=== PATIENT | male | born 1960 | race Native Hawaiian/Other Pacific Islander ===

== ENCOUNTER 2022-09-17 10:19 | Emergency (ER) | payer OTHER ==
[~2022-09-17] VITALS: Ht 185.4 cm; Wt 108.9 kg
[2022-09-17 10:25] VITALS: BP 132/91; TEMP 97.9
== END 2022-09-17 10:40 | disposition home or self-care (01) ==
LOC: ED 10:19
DX: L03.113 Cellulitis of right upper limb (principal); S51.011A Laceration without foreign body of right elbow, initial encounter; S50.311A Abrasion of right elbow, initial encounter; X58.XXXA Exposure to other specified factors, initial encounter; Y92.89 Other specified places as the place of occurrence of the external cause
CPT/HCPCS: 96372; 99282; J1100

== ENCOUNTER 2022-10-06 12:29 | Outpatient (CLI) | payer OTHER | END 2022-10-06 18:56 | disposition home or self-care (01) | LOC: RAD 12:29 | PROVIDERS: ATTEND Nurse Practitioner Primary Care | DX: M79.601 Pain in right arm (principal) ==

== ENCOUNTER 2022-11-10 16:09 | Outpatient (CLI) | payer OTHER ==
[2022-11-10 16:42] LABS: POTASSIUM 4.3 mmol/L (3.6-5.2)
== END 2022-11-10 18:49 ==
LOC: RAD 16:09
PROVIDERS: ATTEND Nurse Practitioner Family
DX: R07.89 Other chest pain (principal)
CPT/HCPCS: 36415; 80053; 84484; 85379; Q9963

== ENCOUNTER 2022-11-15 08:13 | Observation (INO) | payer OTHER ==
[~2022-11-15] VITALS: Ht 182.9 cm; Wt 117.3 kg
[2022-11-15 08:19] VITALS: BP 151/102; TEMP 97.9
[2022-11-15 08:42] LABS: PLATELET COUNT 244 K/uL (142-355)
[2022-11-15 08:47] LABS: PARTIAL THROMBOPLASTIN TIME 26.8 SECONDS (23.9-36.7)
[2022-11-15 08:52] LABS: POTASSIUM 4.1 mmol/L (3.6-5.2)
[2022-11-15 09:00] VITALS: BP 149/102
[2022-11-15 10:15] VITALS: BP 143/81
[2022-11-15 11:15] VITALS: BP 139/87
[2022-11-15] MEDS ORDERED: LIPITOR80 MG PO (16:15)
[2022-11-15] MEDS ORDERED: ASPIRIN/ENTERIC81 MG PO (16:18)
[2022-11-15 16:19] VITALS: BP 138/68; TEMP 98.4
[2022-11-15 17:06] VITALS: BP 141/96; TEMP 97.7; Ht 182.9 cm; Wt 117.3 kg
== END 2022-11-15 17:34 | disposition home or self-care (01) ==
LOC: ED 08:13 → MED/SURG 11:30
PROVIDERS: Family Medicine; ADMIT Nurse Practitioner; ATTEND Internal Medicine
DX: R94.31 Abnormal electrocardiogram [ECG] [EKG] (principal); I10 Essential (primary) hypertension; G62.89 Other specified polyneuropathies; F17.210 Nicotine dependence, cigarettes, uncomplicated; Z79.899 Other long term (current) drug therapy
CPT/HCPCS: 36415; 80053; 80307; 81002; 82550; 83880; 84484; 85027; 85379; 85610; 85730; 93005; 94664; 99221; 99284; G0378

== ENCOUNTER 2022-12-06 07:51 | Outpatient (CLI) | payer OTHER ==
[~2022-12-06 07:51] MED LIST: ASPIRIN/ENTERIC81 MG PO; LIPITOR80 MG PO
== END 2022-12-06 19:18 | disposition home or self-care (01) ==
LOC: MRI 07:51
PROVIDERS: ATTEND Orthopaedic Surgery
DX: M25.511 Pain in right shoulder (principal); M75.41 Impingement syndrome of right shoulder; M75.111 Incomplete rotator cuff tear or rupture of right shoulder, not specified as traumatic; M50.321 Other cervical disc degeneration at C4-C5 level; M50.322 Other cervical disc degeneration at C5-C6 level; M50.323 Other cervical disc degeneration at C6-C7 level; S16.1XXA Strain of muscle, fascia and tendon at neck level, initial encounter; S23.3XXA Sprain of ligaments of thoracic spine, initial encounter; M51.34 Other intervertebral disc degeneration, thoracic region; Y92.89 Other specified places as the place of occurrence of the external cause